=== PATIENT | male | born 1960 | race Caucasian/White ===

== ENCOUNTER → 2021-10-09 | Outpatient (CLI) | payer OTHER ==
[~2021-10-09] VITALS: Ht 180.3 cm; Wt 142.0 kg
== END ==
LOC: EROP 12:07
DX: U07.1 COVID-19 (principal); Z23 Encounter for immunization; E11.9 Type 2 diabetes mellitus without complications; C85.10 Unspecified B-cell lymphoma, unspecified site; I99.9 Unspecified disorder of circulatory system; E66.9 Obesity, unspecified
CPT/HCPCS: M0247; Q0247